=== PATIENT | female | born 1950 | race Caucasian/White ===

== ENCOUNTER → 2017-08-09 | Outpatient (CLI) | payer MEDICARE, BC | LOC: MC.RAD 06:58 | DX: Z12.31 Encounter for screening mammogram for malignant neoplasm of breast (principal); N64.89 Other specified disorders of breast ==

== ENCOUNTER → 2017-08-16 | Outpatient (CLI) | payer MEDICARE, BC | LOC: MC.RAD 09:46 | DX: N60.02 Solitary cyst of left breast (principal) ==

== ENCOUNTER → 2018-01-25 | Outpatient (CLI) | payer MEDICARE, BC | LOC: COL.RAD 01-24 07:30 | DX: K58.0 Irritable bowel syndrome with diarrhea (principal); K76.0 Fatty (change of) liver, not elsewhere classified ==

== ENCOUNTER → 2018-02-13 | Outpatient (CLI) | payer MEDICARE, BC | LOC: MC.RAD 01-23 07:30 | DX: N63.20 Unspecified lump in the left breast, unspecified quadrant (principal) ==

== ENCOUNTER → 2019-02-23 | Outpatient (CLI) | payer MEDICARE, BC | LOC: MC.RAD 08-21 07:00 | DX: Z12.31 Encounter for screening mammogram for malignant neoplasm of breast (principal) ==

== ENCOUNTER → 2021-01-26 | Outpatient (CLI) | payer MEDICARE, BC | LOC: MC.RAD 06:52 | DX: Z12.31 Encounter for screening mammogram for malignant neoplasm of breast (principal) ==

== ENCOUNTER 2022-06-30 11:28 | Outpatient (RCR) | payer MEDICARE, BC ==
[~2022-06-30 11:28] MED LIST: AMARYL1 MG PO; BENICAR 20MG TA20 MG PO; CLARITIN 1010 MG/TAB PO; DAILY MULTIPLE1 T18 PO; EFFIENT10 MG PO; ESTRACE0.1 MG/GM VG; FIBER GUMMIES2.5 GM PO; FLONASEALLERGY NS; FLOVENT 220MCG7.9 GM IH; IMODIUM 2MG CAPS2 MG PO; JARDIANCE25 PO; LEVSIN0.125 M1 PO; LIPITOR 80MG80 MG PO; PRAVACHOL 20MG20 MG PO; SEREVENT IH; SYNTHROID0.05 MG/TA PO
== END 2022-07-20 | disposition still patient (30) ==
LOC: COL.CR
DX: Z48.812 Encounter for surgical aftercare following surgery on the circulatory system (principal); Z95.5 Presence of coronary angioplasty implant and graft

== ENCOUNTER → 2023-07-28 | Outpatient (CLI) | payer MEDICARE, BC | LOC: MC.RAD 06:53 | DX: Z12.31 Encounter for screening mammogram for malignant neoplasm of breast (principal) ==